=== PATIENT | male | born 2000 | race Caucasian/White ===

== ENCOUNTER 2022-11-21 21:06 | Emergency (ER) | payer OTHER ==
[~2022-11-21] VITALS: Ht 187.9 cm; Wt 77.1 kg
[2022-11-21] MEDS ORDERED: VRAYLAR1.5 MG PO (21:38)
[2022-11-21] MEDS ORDERED: SEPTDS PO (21:52)
[2022-11-21] MEDS ORDERED: AMOX-CLAV 875-1 EACH PO (21:52)
[2022-11-21] MEDS ORDERED: Motrin,Rufen800 MG PO (21:52)
== END 2022-11-21 22:22 | disposition home or self-care (01) ==
LOC: ED 21:06
DX: L03.213 Periorbital cellulitis (principal)